=== PATIENT | female | born 1985 | race Caucasian/White ===

== ENCOUNTER 2019-02-01 06:54 | Emergency (ER) | payer MEDICAID ==
[2019-02-01] MEDS ORDERED: Lactated Ringers 1,000 ML IV ONE (07:33)
[2019-02-01] MEDS ORDERED: Metoclopramide 10 MG/2 ML SDV IVPUSH STA (07:37)
[2019-02-01] MEDS ORDERED: LORazepam 2 MG/ML SDV IVPUSH STA (07:38)
--- NOTE | 2019-02-01 07:41 | EDM.PDOC ---
ED HPI GENERAL MEDICAL PROBLEM - General Chief Complaint: Gastrointestinal Problem Stated Complaint: VOMITING Time Seen by Provider: 02/01/19 07:14 Source of Information: Reports: Patient History Limitations: Reports: No Limitations - History of Present Illness INITIAL COMMENTS - FREE TEXT/NARRATIVE: Ms. Guillen is a pleasant 34-year-old woman with a past medical history significant for anxiety and bipolar affective disorder, on Xanax 1 mg BID and daily risperidone, who states that she developed nausea and vomiting around midnight, which developed into dry heaves. She is reporting esophageal pain from the vomiting. No associated fever, constipation, diarrhea, or urinary symptoms. She denies associated dizziness or lightheadedness. The patient states that her nausea and vomiting is related to increased anxiety , related to family coming in for Thanksgiving. She states that she has had similar symptoms about 6 or 7 times over the past 5 years. The patient states that she took one tablet of Zofran 4 mg ODT around 03:30, but that her nausea and dry heaves have persisted. The patient's heart rate is noted to be bradycardic; the patient states that that is normal for her. The patient's medical record from 09/04/2018 indicates a history of GERD, however , the patient denies that she has this history, and she takes no antacid medications. The patient's PCP is LUCERO Smart. Her Psychiatric mid-level is Sheba Patel APRN, in [place]. The patient has not received an influenza vaccine this season, but declined an offer for one here. 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: Psychiatric History: Reports: Anxiety, Bipolar - Past Surgical History HEENT Surgical History: Reports: Oral Surgery (wisdom teeth extraction), Other ( See Below) (Giant cell granuloma of mandible excised) Musculoskeletal Surgical History: Reports: Other (See Below) Other Musculoskeletal Surgeries/Procedures:: 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 Social & Family History - Family History Family Medical History: Noncontributory Cardiac: Reports: CAD - Tobacco Use Smoking Status *Q: Current Every Day Smoker Years of Tobacco use: 17 Packs/Tins Daily: 1 Packs/Tins Daily Comment: Down from 2 ppd - Caffeine Use Caffeine Use: Reports: Coffee, Soda, Tea - Alcohol Use Alcohol Use History: No - Recreational Drug Use Recreational Drug Use: Yes Drug Use in Last 12 Months: Yes Recreational Drug Type: Reports: Marijuana/Hashish (stopped smoking recreatinally August 2018) - Living Situation & Occupation Living situation: Reports: , with Family (2 kids) Occupation: Unemployed ED ROS GENERAL - Review of Systems Review Of Systems: Comprehensive ROS is negative, except as noted in HPI. ED EXAM, GI/ABD - Physical Exam Exam: See Below Exam Limited By: No Limitations General Appearance: Alert, Anxious, Mild Distress (dry heaving), Thin Eyes: Bilateral: Normal Appearance, EOMI Ears: Normal External Exam, Hearing Grossly Normal Nose: Normal Inspection Throat/Mouth: Normal Inspection, Normal Lips, Normal Voice, No Airway Compromise Head: Atraumatic, Normocephalic Neck: Normal Inspection, Full Range of Motion Respiratory/Chest: No Respiratory Distress, Lungs Clear, Normal Breath Sounds, No Accessory Muscle Use Cardiovascular: Normal Peripheral Pulses, Regular Rate, Rhythm, No Edema, No Gallop, No JVD, No Murmur, No Rub GI/Abdominal Exam: Normal Bowel Sounds, Soft, No Organomegaly, No Distention, No Abnormal Bruit, No Mass, Tender (Generalized, non-focal) (Female) Exam: Deferred Rectal (Female) Exam: Deferred Back Exam: Normal Inspection, Full Range of Motion, NT Extremities: Normal Inspection, Normal Range of Motion, No Pedal Edema, Normal Capillary Refill Neurological: Alert, Oriented, Normal Cognition, No Motor/Sensory Deficits Psychiatric: Anxious Skin Exam: Warm, Dry, Intact, Normal Color, No Rash EKG INTERPRETATION EKG Date: 02/01/19 Time: 07:33 Rhythm: Other (Bradycardic junctional escape) Rate (Beats/Min): 44 [place]: Normal P-Wave: Absent QRS: Normal ST-T: Depressed (< 1 mm inferior leads only) QT: Normal Comparison: Change From Previous EKG (From 09/04/2018 - junctional escape, ST depressions) Course - Vital Signs Last Recorded V/S: Last Vital Signs Temp 36.0 C 02/01/19 07:00 Pulse 47 L 02/01/19 07:00 Resp 20 02/01/19 07:00 BP 119/55 L 02/01/19 07:00 Pulse Ox 100 02/01/19 07:00 Orthostatic Blood Pressure [ 139/80 Standing] Orthostatic Blood Pressure [ 136/83 Supine] - Orders/Labs/Meds Orders: Active Orders 24 hr Category Date Time Status EKG Documentation Completion [RC] STAT Care 02/01/19 07:32 Active Orthostatic Vital Signs [RC] STAT Care 02/01/19 07:33 Active Labs: Laboratory Tests 02/01/19 Range/Units 08:13 Sodium 135 L (136-145) mEq/L Potassium 4.3 (3.5-5.1) mEq/L Chloride 99 (98-107) mEq/L Carbon Dioxide 20 L (21-32) mEq/L Anion Gap 20.3 H (5-15) BUN 10 (7-18) mg/dL Creatinine 1.1 H (0.55-1.02) mg/dL Est Cr Clr Drug Dosing 60.74 mL/min Estimated GFR (MDRD) 58 (>60) mL/min BUN/Creatinine Ratio 9.1 L (14-18) Glucose 136 H (74-106) mg/dL Calcium 9.4 (8.5-10.1) mg/dL Magnesium 1.8 (1.8-2.4) mg/dl Total Bilirubin 0.7 (0.2-1.0) mg/dL AST 19 (15-37) U/L ALT 11 L (14-59) U/L Alkaline Phosphatase 53 (46-116) U/L Total Protein 7.7 (6.4-8.2) g/dl Albumin 3.9 (3.4-5.0) g/dl Globulin 3.8 gm/dL Albumin/Globulin Ratio 1.0 (1-2) Meds: Medications Discontinued Medications Generic Name Dose Route Start Last Admin Trade Name Freq PRN Reason Stop Dose Admin Lactated Ringer's 1,000 mls @ 999 mls/hr 02/01/19 07:33 02/01/19 07:47 Ringers, Lactated IV 02/01/19 08:33 999 mls/hr .BOLUS ONE Administration Lorazepam 1 mg 02/01/19 07:38 02/01/19 07:45 Ativan IVPUSH 02/01/19 07:39 1 mg ONETIME STA Administration Metoclopramide HCl 10 mg 02/01/19 07:37 02/01/19 07:43 Reglan IVPUSH 02/01/19 07:38 10 mg ONETIME STA Administration - Re-Assessments/Exams Free Text/Narrative Re-Assessment/Exam: 02/01/19 07:34 The patient is on risperidone, which can cause QT prolongation, then she took 4 mg of Zofran ODT this morning, which can also cause QT prolongation. Before I order an antiemetic that can cause additional QT propagation, I would like to assess her current QTc, therefore I ordered an ECG. I have also ordered orthostatics, for while the patient does not complain of lightheadedness or dizziness at this time, I see that she was found to be orthostatic during her last presentation to the ED. Either way, the patient will receive 1 L of LR. 02/01/19 07:39 The patient's QTc is only 407 ms. I have therefore ordered 10 mg of IV Reglan. I also ordered 1 mg of IV Ativan to help treat the patient's anxiety, however, I believe the patient drove herself here, therefore we will need to determine that the patient can get a ride home before the Ativan is given. 02/01/19 07:40 The patient is not orthostatic. 02/01/19 08:13 The patient's ECG appears to demonstrate a junctional escape bradycardia, which is changed from her previous ECG on 09/04/2018. At that time, the patient appears to have had a bradycardic sinus arrhythmia. I have ordered a CMP and magnesium level, just to make sure that there are no significant electrolyte abnormalities that could contribute to the change in the patient's ECG. 02/01/19 09:07 The patient's CMP is remarkable for a sodium at the lower limits of normal of 135. Her bicarbonate is depressed at 20, with an anion gap of 20.3. Her creatinine is slightly elevated at 1.1. Her blood glucose is slightly elevated at 136. The remainder of her CMP is unremarkable. Her magnesium level is within normal limits at 1.8. Notified by Sheba ZHENG that the patient is feeling much better, and would like to go home. 02/01/19 09:15 Test results discussed with the patient. I would like to refer the patient to a Clinical Trial Head for evaluation of what appears to be the development of a heart block. The patient states that she needs a referral from her PCP, therefore I will have her follow-up with her PCP for that. In the meantime, the patient can continue to take her usual medications, and I recommended that she stay adequately hydrated. Departure - Departure Time of Disposition: 09:16 Disposition: Home, Self-Care 01 Condition: Good Clinical Impression: Junctional escape rhythm, Anxiety, Bradycardia Nausea & vomiting Qualifiers: Vomiting type: unspecified Vomiting Intractability: non-intractable Qualified Code(s): R11.2 - Nausea with vomiting, unspecified - Discharge Information *PRESCRIPTION DRUG MONITORING PROGRAM REVIEWED*: Not Applicable *COPY OF PRESCRIPTION DRUG MONITORING REPORT IN PATIENT EDWIN: Not Applicable Referrals: Charley Ca PA-C [Primary Care Provider] - Forms: ED Department Discharge Additional Instructions: You were seen in the emergency room for nausea and vomiting associated with increased anxiety. Workup in the ER included blood work, positional blood pressure checks, and an ECG. Your ECG found you to be in a junctional escape bradycardia, which is new since your last ECG on 09/04/2018. You received antinausea medicine, antianxiety medicine, and IV fluid in the ER, and your symptoms significantly improved. We recommend that you follow-up with your PCP, LUCERO Smart, to arrange a referral to a Clinical Trial Head to evaluate your abnormal ECG. In the meantime, we recommend that you continue to take your usual medications as prescribed, and to stay adequately hydrated. Gatorade or Powerade are best. If any other problems, please do not hesitate to return to the ER. - My Orders Last 24 Hours: My Active Orders 02/01/19 07:32 EKG Documentation Completion [RC] STAT 02/01/19 07:33 Orthostatic Vital Signs [RC] STAT - Assessment/Plan Last 24 Hours: My Active Orders 02/01/19 07:32 EKG Documentation Completion [RC] STAT 02/01/19 07:33 Orthostatic Vital Signs [RC] STAT
== END 2019-02-01 09:24 | disposition home or self-care (01) ==
LOC: JD.ED 06:54
DX: R00.1 Bradycardia, unspecified (principal); F41.9 Anxiety disorder, unspecified; F31.9 Bipolar disorder, unspecified; R11.2 Nausea with vomiting, unspecified; F17.210 Nicotine dependence, cigarettes, uncomplicated; Z88.2 Allergy status to sulfonamides; Z79.899 Other long term (current) drug therapy
CPT/HCPCS: 36415; 80053; 83735; 93005; 96361; 96374; 96375; 99284; J2060; J2765; J7120; 93010

== ENCOUNTER 2020-12-02 09:03 | Emergency (ER) | payer MEDICAID ==
--- NOTE | 2020-12-02 10:13 | EDM.PDOC ---
ED HPI GENERAL MEDICAL PROBLEM - General Chief Complaint: Chest Pain Stated Complaint: CHEST PAIN Time Seen by Provider: 12/02/20 09:25 Source of Information: Reports: Patient, RN Notes Reviewed - History of Present Illness INITIAL COMMENTS - FREE TEXT/NARRATIVE: 35 yr female comes in with L chest pain. It started this AM a couple of hrs ago, now almost gone. Has not been recently ill. Hx of heart disease in family and she does smoke. Left Chest Pain Score (Numeric/FACES): 5 - Related Data Allergies Allergy/AdvReac Type Severity Reaction Status Date / Time Sulfa (Sulfonamide Allergy Hives Verified 12/02/20 09:20 Antibiotics) Home Meds: Home Meds ALPRAZolam [Alprazolam] 1 mg PO BID 09/04/18 [History] Cariprazine HCl [Vraylar] 1.5 mg PO DAILY 12/02/20 [History] Past Medical History HEENT History: Reports: None Cardiovascular History: Reports: None Respiratory History: Reports: None Gastrointestinal History: Reports: None Genitourinary History: Reports: None DIFFERENTIAL SPECIALIST History: Reports: Musculoskeletal History: Reports: None Neurological History: Reports: None Psychiatric History: Reports: Anxiety, Bipolar Endocrine/Metabolic History: Reports: None Hematologic History: Reports: None Immunologic History: Reports: None Oncologic (Cancer) History: Reports: None Dermatologic History: Reports: None - Infectious Disease History Infectious Disease History: Reports: None - Past Surgical History HEENT Surgical History: Reports: Oral Surgery (wisdom teeth extraction), Other (See Below) (Giant cell granuloma of mandible excised) Musculoskeletal Surgical History: Reports: Other (See Below) Other Musculoskeletal Surgeries/Procedures:: 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 Social & Family History - Family History Family Medical History: No Pertinent Family History Cardiac: Reports: CAD - Caffeine Use Caffeine Use: Reports: Coffee, Soda, Tea - Living Situation & Occupation Living situation: Reports: , with Family (2 kids) Occupation: Unemployed ED ROS GENERAL - Review of Systems Review Of Systems: See Below Constitutional: Denies: Fever, Chills, Diaphoresis HEENT: Reports: No Symptoms Respiratory: Denies: Shortness of Breath Cardiovascular: Reports: Chest Pain, Palpitations GI/Abdominal: Denies: Abdominal Pain, Nausea, Vomiting Musculoskeletal: Denies: Shoulder Pain, Arm Pain, Back Pain Skin: Reports: No Symptoms Neurological: Reports: No Symptoms ED EXAM, GENERAL - Physical Exam Exam: See Below General Appearance: Alert, No Apparent Distress Head: Atraumatic Neck: Supple Respiratory/Chest: No Respiratory Distress, Lungs Clear, Normal Breath Sounds Cardiovascular: Regular Rate, Rhythm GI/Abdominal: Non-Tender Back Exam: No: CVA Tenderness (L), CVA Tenderness (R) Extremities: Normal Inspection, Normal Range of Motion Neurological: Alert, Oriented, No Motor/Sensory Deficits Skin Exam: Warm, Dry, Normal Color #1 Interpretation EKG Date: 12/02/20 Rhythm: NSR [place]: Normal P-Wave: Present QRS: Other (q waves V2 and V3) ST-T: Normal QT: Normal Course - Vital Signs Last Recorded V/S: Last Vital Signs Temp 98.2 F 12/02/20 09:15 Pulse 78 12/02/20 09:15 Resp 18 12/02/20 09:15 BP 124/83 12/02/20 09:15 Pulse Ox 99 12/02/20 09:15 Departure - Departure Time of Disposition: 10:11 Disposition: Home, Self-Care 01 Condition: Fair Clinical Impression: Atypical chest pain Instructions: Chest Wall Pain Referrals: Charley Ca PA-C [Primary Care Provider] - Forms: ED Department Discharge Additional Instructions: Your heart and lungs check out well this morning. Continue to work hard to stop smoking. You may take tylenol or ibuprofen as needed. Follow up clinic if discomfort not completely gone within 1 to 2 days as expected. Return to ED as needed if symptoms worsening in any way. Sepsis Event Note (ED) - Focused Exam Vital Signs: Vital Signs Temp Pulse Resp BP Pulse Ox 12/02/20 09:15 98.2 F 78 18 124/83 99
== END 2020-12-02 10:23 | disposition home or self-care (01) ==
LOC: JD.ED 09:03
DX: R07.89 Other chest pain (principal); F17.200 Nicotine dependence, unspecified, uncomplicated; Z88.2 Allergy status to sulfonamides
CPT/HCPCS: 93005; 99284-25

== ENCOUNTER 2020-12-15 10:02 | Emergency (ER) | payer MEDICAID ==
--- NOTE | 2020-12-15 12:17 | EDM.PDOC ---
ED HPI GENERAL MEDICAL PROBLEM - General Chief Complaint: Respiratory Problem Stated Complaint: COUGH CONGESTION FEVER Time Seen by Provider: 12/15/20 10:31 Source of Information: Reports: Patient History Limitations: Reports: No Limitations - History of Present Illness INITIAL COMMENTS - FREE TEXT/NARRATIVE: The patient presents with a cough, congestion, runny nose and body aches. The patient has no chest pain or shortness of breath. She has no abdominal pain, nausea, vomiting and diarrhea. She has no medical problems. She got tested for COVID this morning but she thinks she still has it. Onset: Gradual Duration: Day(s): Severity: Moderate Improves with: Reports: None Worsens with: Reports: None Associated Symptoms: Reports: Cough. 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: Musculoskeletal History: Reports: None Neurological History: Reports: None Psychiatric History: Reports: Anxiety, Bipolar Endocrine/Metabolic History: Reports: None Hematologic History: Reports: None Immunologic History: Reports: None Oncologic (Cancer) History: Reports: None Dermatologic History: Reports: None - Infectious Disease History Infectious Disease History: Reports: None - Past Surgical History HEENT Surgical History: Reports: Oral Surgery, Other (See Below) Musculoskeletal Surgical History: Reports: Other (See Below) Other Musculoskeletal Surgeries/Procedures:: 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 Social & Family History - Family History Family Medical History: No Pertinent Family History Cardiac: Reports: CAD - Tobacco Use Tobacco Use Status *Q: Never Tobacco User Second Hand Smoke Exposure: Yes - Caffeine Use Caffeine Use: Reports: Soda - Recreational Drug Use Recreational Drug Use: No - Living Situation & Occupation Living situation: Reports: , with Family (2 kids) Occupation: Unemployed ED ROS GENERAL - Review of Systems Review Of Systems: See Below Constitutional: Reports: No Symptoms HEENT: Reports: Other (congestion runny nose) Respiratory: Reports: Cough Cardiovascular: Reports: No Symptoms Endocrine: Reports: No Symptoms GI/Abdominal: Reports: No Symptoms : Reports: No Symptoms Musculoskeletal: Reports: Muscle Pain ED EXAM, GENERAL - Physical Exam Exam: See Below Exam Limited By: No Limitations General Appearance: Alert, No Apparent Distress Ears: Normal External Exam Nose: Normal Inspection Throat/Mouth: Normal Inspection Head: Atraumatic, Normocephalic Neck: Normal Inspection, Supple, Non-Tender Respiratory/Chest: No Respiratory Distress, Lungs Clear, Normal Breath Sounds Cardiovascular: Regular Rate, Rhythm, No Edema, No Murmur GI/Abdominal: Soft, Non-Tender, No Organomegaly, No Mass Back Exam: Normal Inspection Extremities: Normal Inspection Course - Vital Signs Last Recorded V/S: Last Vital Signs Temp 97.7 F 12/15/20 10:03 Pulse 103 H 12/15/20 10:03 Resp 14 12/15/20 10:03 BP 127/97 H 12/15/20 10:03 Pulse Ox 99 12/15/20 10:03 - Orders/Labs/Meds Labs: Laboratory Tests 12/15/20 Range/Units 10:20 SARS-CoV-2 RNA (STEPHANIE) Negative (NEGATIVE) - Re-Assessments/Exams Free Text/Narrative Re-Assessment/Exam: 12/15/20 12:16 I ordered a COVID 19 and influenza. The COVID 19 is negative. Departure - Departure Time of Disposition: 12:35 Disposition: Home, Self-Care 01 Condition: Good Clinical Impression: Viral URI with cough - Discharge Information *PRESCRIPTION DRUG MONITORING PROGRAM REVIEWED*: Not Applicable *COPY OF PRESCRIPTION DRUG MONITORING REPORT IN PATIENT EDWIN: Not Applicable Referrals: Charley Ca PA-C [Primary Care Provider] - 1 Week Forms: ED Department Discharge Additional Instructions: Drink plenty of fluids. Take tylenol or motrin as needed for fever. Try some over the counter cold medicine as needed. Follow up with your provider within a week. Pleas return if you are worse. Sepsis Event Note (ED) - Evaluation Sepsis Screening Result: No Definite Risk - Focused Exam Vital Signs: Vital Signs Temp Pulse Resp BP Pulse Ox 12/15/20 10:03 97.7 F 103 H 14 127/97 H 99
== END 2020-12-15 12:44 | disposition home or self-care (01) ==
LOC: JD.ED 10:02
DX: J06.9 Acute upper respiratory infection, unspecified (principal); Z88.2 Allergy status to sulfonamides; Z20.822 Contact with and (suspected) exposure to COVID-19
CPT/HCPCS: 87804; 99283; U0002

== ENCOUNTER 2023-08-19 09:15 | Emergency (ER) | payer MEDICAID | END 2023-08-19 10:50 | LOC: JD.ED 09:15 | DX: S83.92XA Sprain of unspecified site of left knee, initial encounter (principal); F17.210 Nicotine dependence, cigarettes, uncomplicated; Z88.5 Allergy status to narcotic agent; Z79.899 Other long term (current) drug therapy; W18.40XA Slipping, tripping and stumbling without falling, unspecified, initial encounter | CPT/HCPCS: 73564-26-LT; 73564-LT; 99283 ==

== ENCOUNTER 2024-03-21 20:08 | Emergency (ER) | payer MEDICAID ==
[2024-03-21] MEDS: Sodium Chloride 0.9% 1,000 ML IV ONE (21:15)
[2024-03-21] MEDS: Alum Hydrox/Mag Hydrox/Simeth 30 ML, Lidocaine 2% 15 ML PO ONE (21:16)
[2024-03-21] MEDS: Ondansetron 4 MG/2 ML SDV IVPUSH ONE (21:16)
[2024-03-21 21:19] LABS: BASOPHILS PERCENT AUTO 0.1 % (0.0-1.0); HEMATOCRIT 43.7 % (37.0-47.0); HEMOGLOBIN 15.3 gm/dl (12.0-16.0); IMMATURE GRAN ABSOLUTE AUTO 0.06 K/mm3 (0.00-0.05); IMMATURE GRAN PERCENT AUTO 0.4 % (0.0-0.4); LYMPHOCYTES ABSOLUTE AUTO 0.5 K/mm3 (1.0-4.8); LYMPHOCYTES PERCENT AUTO 3.4 % (24.0-44.0); MEAN CORPUSCULAR HEMOGLOBIN 31.2 pg (28.0-32.0); MEAN CORPUSCULAR VOLUME 89.2 fl (83.0-99.0); MEAN PLATELET VOLUME 9.2 fl (9.4-12.3); MONOCYTES ABSOLUTE AUTO 0.2 K/mm3 (0.0-0.8); MONOCYTES PERCENT AUTO 1.7 % (0.0-8.0); NEUTROPHILS PERCENT AUTO 94.4 % (41.0-71.0); PLATELET COUNT,PLT 270 K/mm3 (150-400); WHITE BLOOD CELL COUNT,WBC 13.79 K/mm3 (3.9-11.3)
[2024-03-21 21:40] LABS: A/G RATIO 0.9 (1-2); ALBUMIN 3.5 g/dl (3.4-5.0); ANION GAP 17.9 (5-15); BILIRUBIN TOTAL 0.7 mg/dL (0.2-1.0); BUN/CREATININE RATIO 13.3 (14-18); C-REACTIVE PROTEIN 0.87 mg/dL (<0.30); CALCIUM 8.7 mg/dL (8.5-10.1); CREATININE 0.9 mg/dL (0.55-1.02); EST CRCL DRUG DOSING (CG) 67.69 mL/min; POTASSIUM,K 3.9 mEq/L (3.5-5.1); PROTEIN TOTAL,TP 7.4 g/dl (6.4-8.2)
== END 2024-03-21 23:20 | disposition home or self-care (01) ==
LOC: JD.ED 20:08
DX: K52.9 Noninfective gastroenteritis and colitis, unspecified (principal); Z88.2 Allergy status to sulfonamides
CPT/HCPCS: 36415; 80053; 83690; 85025; 86140; 93005; 96361; 96374; 99284; A9270; J2405; J7030